=== PATIENT | male | born 1975 ===

== ENCOUNTER 2019-02-01 22:02 | Emergency (ER) | payer SELFPAY ==
[2019-02-01 22:24] VITALS: BP 113/80; PULSE 69; RESP 16; TEMP 98.3; O2SAT 97
[2019-02-01 23:19] LABS: BASO # 0.1 K/uL (0.0-0.2); BASO % 1.4 % (0.0-2.0); EOS # 0.4 K/uL (0.0-0.7); EOS % 5.1 % (0.0-4.0); HEMOGLOBIN 12.3 g/dL (12.0-18.0); LYMPH # 2.9 K/uL (1.0-4.3); LYMPH % 40.8 % (20.0-40.0); MEAN CELL VOLUME 84.2 fl (80.0-94.0); MEAN CORPUSCULAR HEMOGLOBIN 27.9 pg (27.0-31.0); MEAN CORPUSCULAR HGB CONC 33.2 g/dL (33.0-37.0); MONO # 0.6 K/uL (0.0-0.8); MONO % 8.2 % (0.0-10.0); NEUT # 3.2 K/uL (1.8-7.0); NEUT % 44.5 % (50.0-75.0); NRBC % 0.2 % (0.0-0.0); RBC 4.39 Mil/uL (4.40-5.90); RED CELL DISTRIBUTION WIDTH 13.9 % (11.5-14.5); WHITE BLOOD COUNT 7.2 K/uL (4.8-10.8)
--- NOTE | 2019-02-02 00:27 | ED PDOC ---
Lower Extremity Pain/Injury Time Seen by Provider: 02/01/19 23:08 Chief Complaint (Nursing): Lower Extremity Problem/Injury Chief Complaint (Provider): knee pain History Per: Patient History/Exam Limitations: no limitations Onset/Duration Of Symptoms: Days Severity: Mild Pain Scale Rating Of: 6 Additional History Per: Patient Additional Complaint(s): 43 y/o male with no significant medical hx presents to the ED c/o right knee pain for one week, without injury. Patient stated he has been taking 200mg PO of ibuprofen with no relief, last dose early this am. Patient states pain improves when knee is in still, straight position. pain is worse on ambulation and movement of knee. Denies fever, chills, swelling, injury, numbness. Past Medical History Reviewed: Historical Data, Nursing Documentation, Vital Signs Vital Signs: Last Vital Signs Temp 98.3 F 02/01/19 22:24 Pulse 69 02/01/19 22:24 Resp 16 02/01/19 22:24 BP 113/80 02/01/19 22:24 Pulse Ox 97 02/01/19 22:24 Primary Care Provider: Nancy Barreto - Medical History PMH: No Chronic Diseases - Surgical History Surgical History: No Surg Hx - Family History Family History: States: Unknown Family Hx - Living Arrangements Living Arrangements: With Family - Social History Alcohol: None Drugs: Denies - Immunization History Hx Tetanus Toxoid Vaccination: No Hx Influenza Vaccination: No Hx Pneumococcal Vaccination: No - Home Medications Home Medications: Ambulatory Orders Medication Instructions Recorded Ibuprofen [Motrin] 600 mg PO Q6H PRN #30 tab 02/02/19 - Allergies Allergies/Adverse Reactions: Allergies Allergy/AdvReac Type Severity Reaction Status Date / Time No Known Allergies Allergy Verified 02/01/19 22:25 Review of Systems ROS Statement: Except As Marked, All Systems Reviewed And Found Negative Constitutional: Negative for: Fever, Chills, Sweats, Weakness, Malaise Cardiovascular: Negative for: Chest Pain, Palpitations Respiratory: Negative for: Cough, Shortness of Breath, SOB with Exertion, Wheezing Musculoskeletal: Positive for: Leg Pain (right knee pain) Neurological: Negative for: Weakness Physical Exam - Reviewed Nursing Documentation Reviewed: Yes Vital Signs Reviewed: Yes - Physical Exam Appears: Positive for: Well, Non-toxic, No Acute Distress Head Exam: Positive for: ATRAUMATIC, NORMAL INSPECTION, NORMOCEPHALIC Skin: Positive for: Normal Color, Warm, DRY Eye Exam: Positive for: Normal appearance, PERRL ENT: Positive for: Normal ENT Inspection Neck: Positive for: Normal, Painless ROM, Supple Cardiovascular/Chest: Positive for: Regular Rate, Rhythm Respiratory: Positive for: CNT, Normal Breath Sounds Pulses-Post. Tibialis (L): 2+ Pulses-Post. Tibialis (R): 2+ Gastrointestinal/Abdominal: Positive for: Normal Exam, Soft Back: Positive for: Normal Inspection Extremity: Positive for: Normal ROM (full rom with discomfort, no redness, temp wnl to touch, no eccyhmosis), Tenderness (point tenderness to right medial aspect of the knee), Capillary Refill (<2 secs cap refill, ). Negative for: Pedal Edema, Calf Tenderness, Deformity, Swelling Neurological/Psych: Positive for: Awake, Alert, Normal Tone, Oriented - Laboratory Results Result Diagrams: 02/01/19 23:15 - ECG O2 Sat by Pulse Oximetry: 97 Medical Decision Making Medical Decision Making: knee xray toradol esr cbc Labs and xray reviewed by me, Unremarkable, no acute fx. Terry bandage applied by technical proposal writer, neuro/vasc intact post application. RX given for Motrin. Given referral to ortho for further eval if knee does not improve in 1-2 weeks. Patient states understanding and agrees with plan. Disposition - Clinical Impression Clinical Impression: Knee pain - Patient ED Disposition Is Patient to be Admitted: No Counseled Patient/Family Regarding: Diagnosis, Need For Followup, Rx Given - Disposition Referrals: [facility] [Outside] Vazquez Thakur III, MD [Staff Provider] - Disposition Time: 00:00 Condition: IMPROVED Prescriptions: Ibuprofen [Motrin] 600 mg PO Q6H PRN #30 tab PRN Reason: Pain, Moderate (4-7) Instructions: Knee Pain (DC) Forms: [employer] (Turkish) Print Language: [place] CITIZEN - POA Present On Arrival: None
--- NOTE | 2019-02-02 09:36 | RAD ---
Date of service: 02/01/2019 PROCEDURE: Right Knee Radiographs. HISTORY: pain COMPARISON: None. TECHNIQUE: 2 views obtained. FINDINGS: BONES: Normal. No fracture. JOINTS: Normal. No osteoarthritis. JOINT EFFUSION: None. OTHER FINDINGS: None. IMPRESSION: Normal radiographs of the right knee.
== END 2019-02-02 00:39 | disposition home or self-care (01) ==
LOC: H.ER 22:02
DX: M25.561 Pain in right knee (principal)
CPT/HCPCS: 73562; 85025; 85651; 96372; 99283; J1885